=== PATIENT | female | born 1960 | race Caucasian/White ===

== ENCOUNTER 2018-02-13 12:57 | Inpatient (IN) | payer OTHER ==
[~2018-02-13] VITALS: Ht 167.6 cm; Wt 66.1 kg
[2018-02-13 13:46] LABS: HEMATOCRIT 43.4 % (36.0-46.0); HEMOGLOBIN 14.7 G/DL (11.9-15.5); MCH 33.9 PG (29.0-34.0); MCHC 33.9 G/DL (30.0-36.0); PLATELET COUNT 205 K/uL (156-360); RBC DIS.WIDTH-CV 12.9 % (11.8-14.6); RBC DIS.WIDTH-SD 47.8 % (39-53); RED BLOOD COUNT 4.34 M/uL (3.80-5.20); WHITE BLOOD COUNT 8.3 K/uL (4.1-10.2)
[2018-02-13 13:55] LABS: CHLORIDE 105 mEq/L (99-109); POTASSIUM 3.9 mEq/L (3.7-5.4); SODIUM 139 mEq/L (136-147)
[2018-02-13 13:56] LABS: GLUCOSE 132 mg/dL (70-99)
[2018-02-13 14:00] LABS: CREATININE 0.9 mg/dL (0.6-1.3); GFR ESTIMATE (CALCULATED) > 59 mL/min/
[2018-02-13 14:01] LABS: UREA NITROGEN (BUN) 7 mg/dL (9-23)
[2018-02-13 14:07] LABS: TROP-I INTERPRETATION NEGATIVE; TROPONIN-I < 0.01 ng/mL (0.0-0.30)
[2018-02-13] MEDS ORDERED: SINGULAIR10 MG PO (16:01)
[2018-02-13] MEDS ORDERED: ZYRTEC5 MG PO (16:01)
[2018-02-13] MEDS ORDERED: FIORINAL 50-321 EACH PO (16:02)
[2018-02-13] MEDS ORDERED: ULTRAM50 MG PO (16:04)
[2018-02-13] MEDS ORDERED: DUONEB 2.5-0.5 M3 ML AEROSOL (16:05)
[2018-02-13 18:06] VITALS: BP 133/92
[2018-02-13 19:03] LABS: TROP-I INTERPRETATION NEGATIVE; TROPONIN-I 0.02 ng/mL (0.0-0.30)
[2018-02-13 23:57] VITALS: BP 124/70
[2018-02-14 01:22] LABS: TROP-I INTERPRETATION NEGATIVE; TROPONIN-I < 0.01 ng/mL (0.0-0.30)
[2018-02-14 03:58] VITALS: BP 91/55
[2018-02-14 07:56] VITALS: BP 138/83
[2018-02-14 11:54] VITALS: BP 115/72
[2018-02-14 13:33] LABS: BASE EXCESS -0.4 mEq/L (-3 to +3); BICARBONATE 22.9 mEq/L (22-26); CARBOXY HGB 2.4 % (0-5); COMMENTS - BLOOD GASES A+C+; FI02 21 %; METHEMOGLOBIN 1.5 % (0-1.5); PCO2 33 mm Hg (35-45); PO2 66 mm Hg (80-100); SITE RR; pH 7.45 (7.35-7.45)
[2018-02-14 15:49] VITALS: BP 133/73
[2018-02-14 19:00] VITALS: BP 124/64
[2018-02-14 23:36] VITALS: BP 133/43
[2018-02-15 08:38] VITALS: BP 144/82; BP 157/102
[2018-02-15 11:30] VITALS: BP 114/76
[2018-02-15 17:06] VITALS: BP 128/82
[2018-02-15 20:18] VITALS: BP 156/79
[2018-02-15 23:04] VITALS: BP 116/76
[2018-02-16 04:50] VITALS: BP 155/88
[2018-02-16 05:13] LABS: BASOPHIL (%) 0.1 % (0-1); EOSINOPHIL (%) 0 % (0-5); HEMATOCRIT 40.3 % (36.0-46.0); HEMOGLOBIN 13.2 G/DL (11.9-15.5); IMMATURE GRANULOCYTE (%) 0.8 % (0.0-0.7); LYMPHOCYTE (%) 4.7 % (15-42); LYMPHOCYTE COUNT 0.7 K/uL (1.0-2.8); MCH 32.5 PG (29.0-34.0); MCHC 32.8 G/DL (30.0-36.0); MCV 99.3 FL (83-99); MONOCYTE (%) 3.8 % (3-12); MONOCYTE COUNT 0.6 K/uL (0-0.8); NEUTROPHIL (%) 90.6 % (45-76); NEUTROPHIL COUNT 13.7 K/uL (1.8-6.4); PLATELET COUNT 231 K/uL (156-360); RBC DIS.WIDTH-CV 13.2 % (11.8-14.6); RBC DIS.WIDTH-SD 48.1 % (39-53); RED BLOOD COUNT 4.06 M/uL (3.80-5.20); WHITE BLOOD COUNT 15.1 K/uL (4.1-10.2)
[2018-02-16 05:39] LABS: CHLORIDE 106 MEQ/L (99-109); CREATININE 0.8 MG/DL (0.6-1.3); GFR ESTIMATE (CALCULATED) > 59 mL/min/; GLUCOSE 125 mg/dL (70-99); POTASSIUM 4.6 MEQ/L (3.7-5.4); SODIUM 140 MEQ/L (136-147)
[2018-02-16 06:04] LABS: UREA NITROGEN (BUN) 21 mg/dL (9-23)
[2018-02-16 07:53] VITALS: BP 187/74
[2018-02-16 12:04] VITALS: BP 127/90
[2018-02-16 15:53] VITALS: BP 155/94
[2018-02-16 19:30] VITALS: BP 141/86
[2018-02-17] VITALS: BP 166/96
[2018-02-17 04:45] VITALS: BP 135/87
[2018-02-17 08:23] VITALS: BP 162/82
[2018-02-17 11:24] VITALS: BP 133/56
[2018-02-17] MEDS ORDERED: FLONASE16 G1 BOTH NARES (14:48)
[2018-02-17] MEDS ORDERED: NATURAL BALANCE15 M1 BOTH EYES (14:48)
[2018-02-17] MEDS ORDERED: AZITHROMYCIN500 M1 PO (14:48)
[2018-02-17] MEDS ORDERED: BENZONATATE100 MG PO (14:48)
[2018-02-17] MEDS ORDERED: ROBITUSSIN AC,T10 ML PO (14:49)
[2018-02-17] MEDS ORDERED: PREDNISONE20 MG PO (14:53)
[2018-02-17] MEDS ORDERED: PREDNISONE10 MG PO (14:53)
[2018-02-17] MEDS ORDERED: DUONEB 2.5-0.5 M3 ML AEROSOL (15:17)
== END 2018-02-17 16:48 | disposition home or self-care (01) | DRG 192 ==
LOC: EME 12:57 → EDOF 15:34 → 4SOUTH 15:34 → EDOF 15:34 → ENRESERV 15:35 → 4SOUTH 17:55
PROVIDERS: Emergency Medicine; Hospitalist; Internal Medicine; Nurse Practitioner Adult Health
DX: J44.1 Chronic obstructive pulmonary disease with (acute) exacerbation (principal); R09.02 Hypoxemia; R07.9 Chest pain, unspecified; J98.01 Acute bronchospasm; Z87.891 Personal history of nicotine dependence; Z79.899 Other long term (current) drug therapy; Z80.3 Family history of malignant neoplasm of breast; Z86.711 Personal history of pulmonary embolism; Z82.3 Family history of stroke
CPT/HCPCS: 36600; 71045; 71046; 71275; 80048; 82803; 84484; 85025; 85027; 93005; 94640; 94640 76; 94644; 94760; 99202; 99281; 99284; G0378; J1644; J1885; J2930; J7512